=== PATIENT | female | born 1955 | race Caucasian/White ===

== ENCOUNTER 2018-05-17 10:04 | Day surgery (SDC) | payer OTHER ==
[2018-05-17] MEDS ORDERED: MIDAZOLAM 1 MG/ML 2 ML INJ (11:49)
[2018-05-17] MEDS ORDERED: BUPIVACAINE 0.5% (SDV) 30 ML INJ (11:49)
[2018-05-17] MEDS ORDERED: PROPOFOL 100 ML (12:45)
[2018-05-17] MEDS ORDERED: ONDANSETRON 4 MG INJ (13:38)
[2018-05-17] MEDS ORDERED: DEXAMETHASONE 4 MG/ML 5 ML INJ (13:38)
[2018-05-17] MEDS ORDERED: NEOSTIGMINE 3 MG/3 ML SYRINGE (14:18)
[2018-05-17] MEDS ORDERED: GLYCOPYRROLATE 0.4 MG INJ (14:18)
[2018-05-17] MEDS ORDERED: CEFAZOLIN 1 GM INJ (14:18)
[2018-05-17] MEDS ORDERED: ALBUTEROL 0.083% (NEB) 2.5 MG/3 ML AMP HHN (15:00)
[2018-05-17] MEDS ORDERED: LABETALOL HCL 20MG INJ IV (15:00)
[2018-05-17] MEDS ORDERED: MIDAZOLAM 1 MG/ML 2 ML INJ IV (15:00)
[2018-05-17] MEDS ORDERED: DIPHENHYDRAMINE 50 MG INJ IV (15:00)
[2018-05-17] MEDS ORDERED: FENTAnyl 50 MCG/ML VIAL IV ×3 (15:00)
[2018-05-17] MEDS ORDERED: METOCLOPRAMIDE 10 MG INJ IV (15:00)
[2018-05-17] MEDS ORDERED: HYDROmorphONE 1 MG/5 ML IV SYRINGE IV ×3 (15:00)
[2018-05-17] MEDS ORDERED: hydrALAzine 20 MG INJ IV (15:00)
[2018-05-17] MEDS ORDERED: OXYCODONE/ACETAMINOPHEN (5/325) TAB PO ×2 (15:00)
[2018-05-17] MEDS ORDERED: MEPERIDINE 25 MG INJ IV (15:00)
[2018-05-17] MEDS ORDERED: EPHEDrine SULFATE 50 MG/5 ML SYG IV (15:00)
[2018-05-17] MEDS ORDERED: KETOROLAC 30 MG INJ IV (15:00)
[2018-05-17] MEDS ORDERED: ONDANSETRON 4 MG INJ IV (15:00)
== END 2018-05-17 17:30 | disposition home or self-care (01) ==
LOC: SDS 10:04
DX: M75.101 Unspecified rotator cuff tear or rupture of right shoulder, not specified as traumatic (principal); M25.811 Other specified joint disorders, right shoulder; S43.491D Other sprain of right shoulder joint, subsequent encounter; X58.XXXD Exposure to other specified factors, subsequent encounter; M65.811 Other synovitis and tenosynovitis, right shoulder
CPT/HCPCS: 29823; 90686